=== PATIENT | male | born 1980 | race Caucasian/White ===

== ENCOUNTER → 2018-10-08 13:14 | Outpatient (CLI) | payer OTHER, SELFPAY ==
[2018-10-08 13:42] LABS: Semen Sperm Prescence Post-Vas Absent (ABSENT)
== END ==
PROVIDERS: Visit Provider Urology
DX: Z30.09 Encounter for other general counseling and advice on contraception (principal)
CPT/HCPCS: 89321

== ENCOUNTER → 2020-10-12 17:18 | Outpatient (CLI) | payer OTHER, SELFPAY ==
--- NOTE | 2020-10-12 17:27 | DI.MRI.S_ITS ---
PROCEDURE: MR KNEE LT WO CON INDICATIONS: LEFT KNEE PAIN TECHNIQUE: Noncontrast sagittal PD fast spin echo and T2 fast spin echo with fat saturation, sagittal 3-D FLASH with fat saturation; coronal T1 spin echo and PD fast spin echo with fat saturation, and axial PD fast spin echo with fat saturation through the knee. COMPARISON: None. FINDINGS: Image quality: Excellent. Menisci: The medial and lateral menisci demonstrate normal morphology and internal signal. The meniscal root ligaments appear intact. Cruciate ligaments: T2 hyperintense signal is seen within mildly thickened anterior cruciate ligament suggestive of sprain/low-grade intrasubstance partial-thickness tear. No full-thickness ACL rupture. PCL is intact. Medial structures: There is low-grade proximal MCL sprain.. The posterior oblique ligament, semimembranosus tendon insertions, oblique popliteal ligament, and meniscocapsular junction appear intact. Visualized portions of the pes anserinus tendons appear normal. No abnormal bursal fluid. Lateral structures: The lateral collateral ligament, long and short heads of the biceps femoris tendon appear intact. The popliteus tendon appears normal; the popliteofibular ligament appears intact. The posterosuperior and anteroinferior popliteomeniscal fascicles appear intact. The arcuate and fabellofibular ligaments appear intact, on either side of the lateral inferior geniculate artery. Iliotibial band appears normal. Anterior structures: The quadriceps and patellar tendons appear intact. Patellar alignment is normal. No femoral trochlear dysplasia or ventral trochlear prominence. No edema in the infrapatellar fat pad. Bones and cartilage: No bone marrow contusions or fractures. The cartilage of the medial and lateral femorotibial compartments, as well as the patellofemoral compartment, appears normal in thickness. Joint space: There is small amount of joint fluid, no gross intra-articular loose body. No Valente's cyst. Normal appearing synovial plicae are incidentally noted. IMPRESSION: 1. Suggestion of sprain/low-grade partial-thickness tear involving anterior cruciate ligament. No full-thickness ACL rupture. PCL is intact. 2. Low-grade proximal MCL sprain near its femoral insertion. 3. No evidence of focal meniscal tear. 4. No marrow edema. No fracture or dislocation. Articulating cartilages are intact. Dictated by: Stephane Emerson M.D. on 10/14/2020 at 9:17 Approved by: Stephane Emerson M.D. on 10/14/2020 at 9:40
== END ==
DX: M25.562 Pain in left knee (principal); S83.412A Sprain of medial collateral ligament of left knee, initial encounter
CPT/HCPCS: 73721